=== PATIENT | male | born 1955 | race Caucasian/White ===

== ENCOUNTER 2025-08-04 06:25 | Day surgery (SDC) | payer MEDICARE, OTHER, SELFPAY ==
[2025-07-28 09:12] LABS: Hematocrit 40.2 % (39.0-52.0); Hemoglobin 13.3 g/dL (13.0-18.0); Mean Corp Hgb Conc. 33.1 g/dL (33.0-37.0); Mean Corpuscular Volume 89.9 fL (80.0-94.0); Platelet Count 236 10^3/uL (130-400); Red Cell Dist. Width 14.7 % (11.5-14.5)
[2025-07-28 09:56] LABS: Blood Urea Nitrogen 25 mg/dl (9-20); Calcium 9.3 mg/dl (8.4-10.2); Carbon Dioxide 31 mmol/L (22-30); Chloride 102 mmol/L (98-107); Glucose 100 mg/dl (70-99); Potassium 4.5 mmol/L (3.5-5.1); Sodium 138 mmol/L (135-145); eGFR > 60.00
[2025-07-28 13:15] VITALS: BMI 22.9
[2025-08-04] VITALS (9 sets, daily range): BP systolic 94–130; BP diastolic 51–76; BMI 23.3
[2025-08-04] MEDS: NORMOSOL-R/PLASMALYTE-A 1000 IV (09:17)
[2025-08-04 09:18] LABS: Glucose - Point of Care 134 mg/dl (70-99)
[2025-08-04] MEDS: TYLENOL 500 MG PO (09:24)
[2025-08-04 12:38] LABS: Glucose - Point of Care 243 mg/dl (70-99)
[2025-08-04] MEDS: NOVOLOG vial 2 UNITS SC (12:54)
== END 2025-08-04 14:48 | disposition home or self-care (01) ==
LOC: SDS 06:25
PROVIDERS: ATTENDING PHYSICIAN Surgery; FAMILY PHYSICIAN Family Medicine; OTHER PHYSICIAN Internal Medicine Cardiovascular Disease; REFERRING PHYSICIAN Internal Medicine
DX: K43.2 Incisional hernia without obstruction or gangrene (principal); K66.0 Peritoneal adhesions (postprocedural) (postinfection); Z85.07 Personal history of malignant neoplasm of pancreas; Z45.2 Encounter for adjustment and management of vascular access device
CPT/HCPCS: 49593; 36590; 80048; 82962; 85027; 88300; 93005; C1781

== ENCOUNTER → 2025-08-13 07:37 | Outpatient (REF) | payer MEDICARE, OTHER, SELFPAY | LOC: MRI 3T 07:37 | PROVIDERS: ATTENDING PHYSICIAN Surgery; FAMILY PHYSICIAN Family Medicine | DX: R97.20 Elevated prostate specific antigen [PSA] (principal) | CPT/HCPCS: 72197; A9575 ==